=== PATIENT | female | born 1990 | race Caucasian/White ===

== ENCOUNTER 2016-06-26 12:02 | Emergency (ER) | payer BC, OTHER ==
[2016-06-26 15:12] VITALS: BP 116/73
--- NOTE | 2016-06-26 15:27 | UC ---
Lower Extremity/Ankle HPI - History of Current Complaint Chief Complaint: UCLowerExtremity Stated Complaint: LEFT ANKLE PAIN Time Seen by Provider: 06/26/16 15:19 Hx Obtained From: Patient Hx Last Menstrual Period: 2 weeks ago ?: No Onset/Duration: Sudden Onset - rolled the ankle walking down stairs last night, Lasting Days - 1, Still Present Severity Initially: Moderate Severity Currently: Moderate Aggravating Factor(s): Standing, Ambulation Alleviating Factor(s): Rest, Elevation, Ice Able to Bear Weight: Yes - Risk Factors Gout Risk Factors: Negative DVT Risk Factors: Negative Septic Arthritis Risk Factor: Negative - Allergies/Home Medications Allergies/Adverse Reactions: Allergies Allergy/AdvReac Type Severity Reaction Status Date / Time Amoxicillin Allergy Mild STATES Verified 06/26/16 15:13 THIS DOES NOT WORK FOR HER PMH/Surg Hx/FS Hx/Imm Hx Endocrine History Of: Denies: Diabetes, Thyroid Disease Cardiovascular History Of: Denies: Cardiac Disorders, Hypertension Respiratory History Of: Denies: COPD, Asthma GI/ History Of: Denies: Ulcer - Surgical History Surgical History: Yes Surgery Procedure, Year, and Place: 2010 wisdom teeth removed. 2003 ear tubes. recurrent ear infections. - Family History Known Family History: Positive: Cardiac Disease, Diabetes - Social History Occupation: Employed Full-time Lives: With Family - Fiance Alcohol Use: Occasionally Substance Use Type: None Smoking Status (MU): Never Smoked Tobacco Have You Smoked in the Last Year: No - Immunization History Most Recent Tetanus Shot: up to date Review of Systems Musculoskeletal: Arthralgia All Other Systems Reviewed And Are Negative: Yes Physical Exam Triage Information Reviewed: Yes Appearance: Well-Appearing, No Pain Distress - at rest, Well-Nourished Vital Signs: Initial Vital Signs Temp 97.9 F 06/26/16 15:08 Pulse 71 06/26/16 15:08 Resp 14 06/26/16 15:08 BP 116/73 06/26/16 15:08 Pulse Ox 100 06/26/16 15:08 Vital Signs Reviewed: Yes Eyes: Positive: Conjunctiva Clear Neck exam: Normal Respiratory Exam: Normal Cardiovascular Exam: Normal Musculoskeletal: Positive: ROM Limited @ - Left ankle with swelling over the lateral malleolus, Other: - tender on the distal lateral malleolus Neurological Exam: Normal Psychological Exam: Normal Skin Exam: Normal Lower Extremity Course/Dx - Differential Dx/Diagnosis Differential Diagnosis/HQI/PQRI: Fracture (Closed), Sprain Provider Diagnoses: Left ankle sprain. Discharge - Discharge Plan Condition: Stable Disposition: HOME Patient Education Materials: Ankle Sprain (ED), Ankle Stirrup Splint (ED)
--- NOTE | 2016-06-26 15:48 | RAD ---
INDICATION: Left ankle injury. TECHNIQUE: 3 views of the left ankle were obtained. FINDINGS: Soft tissue swelling is noted along the anterolateral aspect of the ankle. No fracture is seen. Joint spaces appear maintained. IMPRESSION: SOFT TISSUE SWELLING, NO FRACTURE IS SEEN.
== END 2016-06-26 16:00 | disposition home or self-care (01) ==
LOC: UCCORT 12:02
DX: S93.402A Sprain of unspecified ligament of left ankle, initial encounter (principal); W10.9XXA Fall (on) (from) unspecified stairs and steps, initial encounter; Y93.01 Activity, walking, marching and hiking; Y92.9 Unspecified place or not applicable; Z88.3 Allergy status to other anti-infective agents
CPT/HCPCS: 99212; G0463

== ENCOUNTER 2017-01-23 08:50 | Emergency (ER) | payer BC ==
[2017-01-23] MEDS ORDERED: methylPREDNISolone 125 MG* 2 ML VIAL IM ONE (08:57)
[2017-01-23] MEDS ORDERED: diPHENhydraMINE IV* 50 MG/ML 1 ml VIAL (BENADRYL) IM ONE (08:58)
[2017-01-23] MEDS ORDERED: EPINEPHrine AMP 1 MG/ML SUBCUT ONE (08:58)
--- NOTE | 2017-01-23 09:01 | UC ---
Allergic Reaction HPI - HPI Summary HPI Summary: 26 YEAR OLD FEMALE PRESENTS WITH COMPLAINS OF BEE STING RIGHT HAND. - History of Current Complaint Stated Complaint: BEE STING POSSIBLE ALLERGIC REACTION Time Seen by Provider: 01/23/17 08:56 Hx Obtained From: Patient Hx Last Menstrual Period: 2 weeks ago Onset/Duration: Sudden Onset Severity Initially: Moderate Severity Currently: Moderate Pain Scale Used: 0-10 Numeric - 7 Location: Diffuse Character: Swelling Associated Signs And Symptoms: Positive: Lightheadedness, Throat Tightening - Allergies/Home Medications Allergies/Adverse Reactions: Allergies Allergy/AdvReac Type Severity Reaction Status Date / Time Amoxicillin Allergy Mild STATES Verified 06/26/16 15:13 THIS DOES NOT WORK FOR HER PMH/Surg Hx/FS Hx/Imm Hx Previously Healthy: Yes - Surgical History Surgical History: Yes Surgery Procedure, Year, and Place: 2010 wisdom teeth removed. 2003 ear tubes. recurrent ear infections. - Family History Known Family History: Positive: Cardiac Disease, Diabetes - Social History Alcohol Use: Occasionally Substance Use Type: None Smoking Status (MU): Never Smoked Tobacco Have You Smoked in the Last Year: No - Immunization History Most Recent Tetanus Shot: up to date Review of Systems Constitutional: Negative, Other - RIGHT HAND SWELLING/ERYTHEMA Skin: Negative Eyes: Negative ENT: Negative Respiratory: Negative Cardiovascular: Negative Gastrointestinal: Negative Genitourinary: Negative Motor: Negative Neurovascular: Negative Musculoskeletal: Negative Neurological: Negative Psychological: Negative All Other Systems Reviewed And Are Negative: Yes Physical Exam Triage Information Reviewed: Yes Eye Exam: Normal ENT Exam: Normal Dental Exam: Normal Neck exam: Normal Neck: Positive: 1 Respiratory Exam: Normal Cardiovascular Exam: Normal Abdominal Exam: Normal Musculoskeletal Exam: Normal Neurological Exam: Normal Psychological Exam: Normal Skin: Positive: Other - RIGHT HAND SWELLING Allergic Reaction Course/Dx - Differential Dx/Diagnosis Provider Diagnoses: BEE STING Discharge - Discharge Plan Condition: Stable Disposition: HOME Prescriptions: Epinephrine [Epipen 2-Pete] 0.3 mg IM ONCE #1 inj LoraTADine TAB(NF) [Claritin 10 MG TAB(NF)] 10 mg PO DAILY #30 tab Methylprednisolone [Medrol Dosepak 4 MG*] 4 mg PO .SEE PETE INSTRUCTION #21 tab Patient Education Materials: Insect Bite or Sting (ED) Referrals: Adele Pearson MD [Primary Care Provider] -
[2017-01-23 09:09] VITALS: BP 133/83
== END 2017-01-23 09:46 | disposition home or self-care (01) ==
LOC: UCEAST 08:50
DX: T63.441A Toxic effect of venom of bees, accidental (unintentional), initial encounter (principal); Z88.1 Allergy status to other antibiotic agents
CPT/HCPCS: 93005; 96372; 99212; G0463; J0171; J1200; J2930

== ENCOUNTER 2018-08-08 07:00 | Emergency (ER) | payer BC ==
[2018-08-08 07:28] VITALS: BP 119/75
[2018-08-08] MEDS ORDERED: Lidocaine/Epineph/Tetraca (NF) 4 ML BTL TOPICAL ONE (07:46)
[2018-08-08] MEDS ORDERED: Lidocaine 1%* 5 ML VIAL INJ ONE (07:46)
--- NOTE | 2018-08-08 07:54 | UC ---
Skin Complaint HPI - HPI Summary HPI Summary: 1. PATIENT HAS HAD A PAINFUL SPLINTER IN HER LEFT HEEL FOR 9 DAYS SINCE . TRIED TO REMOVE IT WITH FORCEPS BUT WAS UNABLE. HAS PERSISTENT PAIN WHEN WALKING. IS UP-TO-DATE WITH HER TETANUS BOOSTER. 2. HAS HAD AN ITCHY RASH ON HER BILATERAL FOREARMS FOR SEVERAL DAYS STARTING 08/05/18. WAS VISITING [facility] FROM 07/25/18 TO 08/02/18. DENIES ANY NEW CONTACTS OR EXPOSURES SINCE HER RETURN FROM HER TRIP. NOTHING ON HER WAIST OR FEET OR HANDS. HAS A HISTORY OF ECZEMA. NO FEVER. - History of Current Complaint Chief Complaint: UCSkin Time Seen by Provider: 08/08/18 07:13 Stated Complaint: SPLINTER IN LEFT HEEL,SKIN CONCERN Hx Obtained From: Patient Hx Last Menstrual Period: 08/05/18 Onset/Duration: Sudden Onset, Lasting Days, Still Present Timing: Constant Onset Severity: Moderate Current Severity: Moderate Pain Intensity: 1 Pain Scale Used: 0-10 Numeric Character: Pain Aggravating Factor(s): Touch Alleviating Factor(s): Nothing Associated Signs & Symptoms: Positive: Rash, Tenderness. Negative: Drainage, Bruising - Allergy/Home Medications Allergies/Adverse Reactions: Allergies Allergy/AdvReac Type Severity Reaction Status Date / Time amoxicillin Allergy Per pt med Verified 08/08/18 07:48 does not work PMH/Surg Hx/FS Hx/Imm Hx Previously Healthy: Yes - Surgical History Surgical History: Yes Surgery Procedure, Year, and Place: 2010 wisdom teeth removed. 2003 ear tubes. recurrent ear infections. - Family History Known Family History: Positive: Cardiac Disease, Diabetes - Social History Alcohol Use: Occasionally Substance Use Type: None Smoking Status (MU): Never Smoked Tobacco Have You Smoked in the Last Year: No - Immunization History Most Recent Tetanus Shot: up to date in 01/2017 Review of Systems All Other Systems Reviewed And Are Negative: Yes Constitutional: Positive: Negative Skin: Positive: Rash Respiratory: Positive: Negative Cardiovascular: Positive: Negative Gastrointestinal: Positive: Diarrhea - RESOLVED Musculoskeletal: Positive: Other: - SOFT TISSUE FB LEFT HEEL Physical Exam Triage Information Reviewed: Yes Appearance: Well-Appearing, No Pain Distress, Well-Nourished Vital Signs: Initial Vital Signs Temp 99 F 08/08/18 07:11 Pulse 89 08/08/18 07:11 Resp 18 08/08/18 07:11 BP 119/75 08/08/18 07:11 Pulse Ox 99 08/08/18 07:11 Vital Signs Reviewed: Yes Eyes: Positive: Conjunctiva Clear ENT: Positive: Hearing grossly normal Neck: Positive: Supple Respiratory: Positive: No respiratory distress, No accessory muscle use Cardiovascular: Positive: Pulses Normal Abdomen Description: Positive: Soft Musculoskeletal: Positive: No Edema, Other: - VISIBLE SPLINTER PLANT ASPECT LEFT HEEL. TENDER Neurological: Positive: Alert Psychological: Positive: Age Appropriate Behavior Skin: Positive: Rashes - PAPUALR RASH BILATERAL FOREARMS. NO DRAINAGE, EXCORIATION OR TENDERNESS. Course/Dx - Course Course Of Treatment: TIME OUT COMPLETED. TOPICAL ANESTHETIC APPLIED TO LEFT HEEL. LOCAL ANESTHESIA THEN ACHIEVED WITH 1% LIDOCAINE. #11 BLADE USED TO OPEN THE OVERLYING SKIN AND 2MM SPLINTER REMOVED USING SPLINTER FORCEPS. PT TOLERATED PROCEDURE WELL. NO BLOOD LOSS. - Diagnoses Provider Diagnosis: Splinter of left foot without infection, Dermatitis, unspecified Discharge - Sign-Out/Discharge Documenting (check all that apply): Patient Departure All imaging exams completed and their final reports reviewed: No Studies - Discharge Plan Condition: Stable Disposition: HOME Prescriptions: Cephalexin CAP* [Keflex 500 CAP*] 500 mg PO BID #10 cap Clobetasol Propionate 0.05 % TOPICAL BID PRN #1 tube PRN Reason: Itching Patient Education Materials: Soft Tissue Foreign Body (ED), Dermatitis (ED) Referrals: Adele Pearson MD [Primary Care Provider] - If Needed Additional Instructions: APPLY TOPICAL STEROID TWICE DAILY TO RASH. KEEP AWAY FROM MUCOUS MEMBRANES. KEEP COOL, CLEAN AND DRY. TRY NOT TO SCRATCH. FOLLOW-UP WITH DERM IF NOT IMPROVING AFTER 1-2 WEEKS. [place]MATOLOGY [place] DR. ISAURO PEÑA [facility], [facility] [address] [place] [address]; [address] [place] [address] Dr. Astrid Oleary Address: [address] [place] [address] [id number] [place] [address] DR. KAYLEEN CLARK [facility] [address] [place] [address] [address] IN [place] [address] Cammy Ballesteros DERMATOLOGY IN [place] DR. DENY CORNELIUS [phone] SPLINTER REMOVED FROM YOUR LEFT HEEL. COVER WITH ANTIBIOTIC OINTMENT AND BANDAID. KEFLEX TO HELP PREVENT INFECTION. YOUR HORMONAL CONTRACEPTIVE MAY NOT BE EFFECTIVE WHILE ON ANTIBIOTICS SO USE BACK UP METHOD SUCH CONDOMS. SEEK FOLLOW-UP IF YOU DEVELOP SPREADING REDNESS OF THE SKIN, PURULENT DRAINAGE, FEVER, INCREASED PAIN OR ANY OTHER CONCERNING SYMPTOMS. - Billing Disposition and Condition Condition: STABLE Disposition: Home
== END 2018-08-08 08:54 | disposition home or self-care (01) ==
LOC: UCCORT 07:00
DX: S90.852A Superficial foreign body, left foot, initial encounter (principal); W45.8XXA Other foreign body or object entering through skin, initial encounter; Y92.9 Unspecified place or not applicable; L30.9 Dermatitis, unspecified; Z88.0 Allergy status to penicillin
CPT/HCPCS: 28190; 99212; G0463